=== PATIENT | female | born 1960 | race Hispanic/Latino ===

== ENCOUNTER → 2019-03-19 | Day surgery (SDC) | payer OTHER ==
[2019-03-18 11:10] LABS: HEMOGLOBIN 12.7 g/dL (12.0-16.0); LYMPHOCYTES # (AUTO) 0.9 (1.0-3.2); LYMPHOCYTES % 22.3 % (18.0-39.1); MEAN CORPUSCULAR HEMOGLOBIN 28.2 pg (28-32); MEAN CORPUSCULAR HGB CONC 32.6 g/dL (31-35); MEAN CORPUSCULAR VOLUME 86.5 fL (81-99); MONOCYTES # (AUTO) 0.4 (0.2-0.8); MONOCYTES % 11.3 % (4.4-11.3); NEUTROPHILS # (AUTO) 2.5 (2.1-6.9); NEUTROPHILS % 65.1 % (38.7-80.0); PLATELET COUNT 265 x10e3/uL (140-360); RED BLOOD COUNT 4.51 x10e6/uL (3.6-5.1); RED CELL DISTRIBUTION WIDTH 13.2 % (11.7-14.4)
[~2019-03-19] MED LIST: AMLODIPINE BESYL5 MG PO; ASPIR 8181 MG PO; CLOPIDOGREL75 MG PO; FENTANYL CITRATE/PF 100MCG/2 ML INJ ONE; GLUCAGON FOR INJ 1 MG VIAL ONE; HYOSCYAMINE 0.125 MG TAB ONE; LAMOTRIGINE100 MG PO; LEXAPRO10 MG PO; LOVASTATIN40 MG PO; METOCLOPRAMIDE HCL 10 MG/2ML VIAL ONE; METOPROLOL PO; MIDAZOLAM HCL 2 MG/2 ML VIAL ONE; MULTIVITAMINS1 EAC7 PO; PANTOPRAZOLE SO40 MG PO; PROPOFOL IV EMULSION 10 MG/ML 20 ML VIAL ONE; PROPOFOL IV EMULSION 10 MG/ML 50 ML VIAL ONE; SYNTHROID100 MCG PO; VENLAFAXINE HCL75 MG PO; VIT D 3 PO; ZOLPIDEM TARTRAT5 MG PO
--- OUTSIDE RECORDS SUMMARY | 2019-03-19 07:40 | XMS REPORT ---
Author Author [facility] Address Unknown Phone Unavailable Care Team Providers Care Freight Team Associate Name Role Phone Unavailable Unavailable Problems This patient has no known problems. Allergies, Adverse Reactions, Alerts This patient has no known allergies or adverse reactions. Medications This patient has no known medications. Encounters Start Date/Time End Date/Time Encounter Type Admission Type Attending Clinicians Care Facility Care Department Encounter ID 2017-09-10 00:00:00 2017-09-10 00:00:00 [facility] [id number]
[2019-03-19 12:10] VITALS: BP 120/81
--- NOTE | 2019-03-19 19:30 | Operative Report ---
DATE OF PROCEDURE: 03/19/2019 SURGEON: Tian Pimentel MD PROCEDURES: 1. Esophagogastroduodenoscopy with biopsies and esophageal dilatation. 2. Colonoscopy with polypectomy. INDICATIONS FOR EGD: Dysphagia and dyspepsia. INDICATIONS FOR COLONOSCOPY: Surveillance colonoscopy and personal history of colon polyps. MEDICATIONS: The patient was done under MAC, please see anesthesiologist's note. PROCEDURE IN DETAIL: With the patient in left lateral decubitus position, flexible fiberoptic Olympus gastroscope was introduced into the esophagus under direct visualization without any difficulty. There were some tongues of velvety red mucosa extending proximally from the GE junction and biopsies were obtained to rule out Gandhi's. The mucosa overlying the distal esophagus revealed some patchy areas of erythema. The scope was then advanced with ease into the stomach and mucosa overlying the antrum and the body revealed some patchy erythema and [id number]-ba-[id number] edema and biopsies were obtained, sent to stain for H pylori. Two minute polyps were noted in the distal body of the stomach and those were removed per the cold biopsy forceps. Pylorus was of normal contour and shape, it was intubated with ease and the scope was advanced all the way to the second portion of the duodenum. The scope was then withdrawn slowly. Mucosa overlying the proximal second portion and the duodenal bulb appeared to be within normal limits. Biopsies were obtained and sent to rule out sprue. The scope was then withdrawn back into the stomach and retroflexed and the lap band appeared to be intact. The scope was then straightened out, it was subsequently withdrawn. Esophagus was then dilated to size 52-Divehi Bahena. The patient tolerated the procedure well. IMPRESSION: 1. Distal esophagitis, mild. 2. Rule out Gandhi's esophagus. 3. Esophagus dilated to size 52-Divehi Bahena. 4. Lap band intact. 5. Gastritis, biopsied. Biopsies sent to stain for Helicobacter pylori. 6. Gastric polyps x2, removed per cold biopsy forceps. 7. Rule out sprue. PLAN: Follow up histology. Increase Protonix to 40 mg one p.o. a.c. b.i.d. The patient was then turned around. After adequate lubrication of the anal canal, a flexible fiberoptic Olympus colonoscope was inserted into the rectum with ease and advanced all the way to the cecum. The scope was then withdrawn slowly and mucosa overlying the cecum and ascending colon appeared to be within normal limits. One polyp was removed per cold biopsy forceps and one polyp was snared from the transverse colon. One polyp was snared and site was hemoclipped in the descending colon. Some diverticular disease was noted in the distal descending and the sigmoid colon. One polyp was hot biopsied from the sigmoid colon. The rectum grossly appeared to be within normal limits. The scope was then retroflexed into the distal rectum and moderate-sized internal hemorrhoids were noted, none of which was actively bleeding. The scope was then straightened out, it was subsequently withdrawn. The patient tolerated the procedure well. IMPRESSION: 1. Transverse colon polyp x2, one snared and one removed per cold biopsy forceps. 2. Descending colon polyp snared, site hemoclipped. 3. Diverticulosis. 4. Sigmoid colon polyp, hot biopsied. 5. Internal hemorrhoids, none actively bleeding. PLAN: Follow up histology. Initiate high-fiber, low-fat diet. Initiate high-fiber supplement. The patient might benefit from a followup colonoscopy in 3 to 5 years. Tian Pimentel MD [facility] /[id number] cc: Dilip Riley MD
== END | disposition home or self-care (01) ==
LOC: OR 07:00
PROVIDERS: ATTEND Internal Medicine Gastroenterology
DX: K29.60 Other gastritis without bleeding (principal); K63.5 Polyp of colon; K31.7 Polyp of stomach and duodenum; K20.9 Esophagitis, unspecified; K22.8 Other specified diseases of esophagus; K59.09 Other constipation; Z98.84 Bariatric surgery status; K57.30 Diverticulosis of large intestine without perforation or abscess without bleeding; K64.8 Other hemorrhoids; I10 Essential (primary) hypertension; E03.9 Hypothyroidism, unspecified; I44.0 Atrioventricular block, first degree; Z88.3 Allergy status to other anti-infective agents; Z88.8 Allergy status to other drugs, medicaments and biological substances; Z79.02 Long term (current) use of antithrombotics/antiplatelets; Z79.82 Long term (current) use of aspirin; Z68.35 Body mass index [BMI] 35.0-35.9, adult
CPT/HCPCS: 36415; 43239; 43450; 45380; 45384; 45385; 85025; 93005; J1610; J2250; J2704 ×2; J2765; J3010; 45378